=== PATIENT | female | born 1985 | race Caucasian/White ===

== ENCOUNTER 2017-09-09 08:46 | Inpatient (IN) | payer BC, OTHER ==
[2017-09-09] VITALS (14 sets, daily range): BP systolic 114–132; BP diastolic 58–82
[~2017-09-09] VITALS: Ht 165.1 cm; Wt 92.0 kg
[~2017-09-09 08:46] MED LIST: Children's Advil Sus PO; MOTRIN800 MG PO; PERCOCET 5/31 TABLET PO; PREFERA-OB P1 TABLET PO; PRILOSEC20 MG PO; Percocet 5/325,Endoc PO; ZYRTEC5 MG PO
[2017-09-09] MEDS ORDERED: BENADRYL ALLERG25 MG PO (09:46)
[2017-09-09 10:13] LABS: EOSINOPHIL (%) 0.9 % (0-5); EOSINOPHIL COUNT 0.1 K/uL (0-0.3); HEMATOCRIT 39.4 % (36.0-46.0); IMMATURE GRANULOCYTE (%) 0.5 % (0.0-0.7); INSTRUMENT ABS NEUTROPHIL CT 6.2 K/uL; LYMPHOCYTE COUNT 1.7 K/uL (1.0-2.8); MCH 27.5 PG (29.0-34.0); MCV 83.5 FL (83-99); MEAN PLAT.VOLUME 10.4 uM^3 (9.5-12.4); MONOCYTE (%) 5.6 % (3-12); MONOCYTE COUNT 0.5 K/uL (0-0.8); NEUTROPHIL (%) 72.5 % (45-76); NEUTROPHIL COUNT 6.2 K/uL (1.8-6.4); PLATELET COUNT 199 K/uL (156-360); RBC DIS.WIDTH-CV 12.4 % (11.8-14.6); RED BLOOD COUNT 4.72 M/uL (3.80-5.20); WHITE BLOOD COUNT 8.5 K/uL (4.1-10.2)
[2017-09-09 12:59] LABS: POINT-OF-CARE METER ID UU13113692
[2017-09-09] MEDS ORDERED: IBUPROFEN800 MG PO (14:38)
[2017-09-10 07:36] VITALS: BP 117/65
[2017-09-10] MEDS ORDERED: BREAST PUMP MC (08:38)
[2017-09-10 14:47] VITALS: BP 115/68
== END 2017-09-10 18:10 | disposition home or self-care (01) | DRG 775 ==
LOC: LDRP-OP 08:46 → 2WEST 08:48 → LDRP-OP 11:21 → 2WEST 14:18 → LDRP-OP 10-17 11:54
PROVIDERS: Nurse Practitioner; Obstetrics & Gynecology Gynecology
DX: O24.420 Gestational diabetes mellitus in childbirth, diet controlled (principal); O36.0930 Maternal care for other rhesus isoimmunization, third trimester, not applicable or unspecified; O99.62 Diseases of the digestive system complicating childbirth; K21.9 Gastro-esophageal reflux disease without esophagitis; Z3A.39 39 weeks gestation of pregnancy; Z37.0 Single live birth; M41.9 Scoliosis, unspecified; O75.89 Other specified complications of labor and delivery; O69.81X0 Labor and delivery complicated by cord around neck, without compression, not applicable or unspecified; O99.214 Obesity complicating childbirth; E66.01 Morbid (severe) obesity due to excess calories; O99.02 Anemia complicating childbirth; D50.9 Iron deficiency anemia, unspecified
CPT/HCPCS: 82948; 85025; J2590

== ENCOUNTER → 2018-04-18 | Outpatient (CLI) | payer BC ==
[~2018-04-18] MED LIST changes: +BENADRYL ALLERG25 MG PO; +BREAST PUMP MC; +IBUPROFEN800 MG PO
== END | disposition home or self-care (01) ==
LOC: NUC 08:44
DX: R10.11 Right upper quadrant pain (principal); K21.9 Gastro-esophageal reflux disease without esophagitis; R11.0 Nausea
CPT/HCPCS: 78226; A9537

== ENCOUNTER → 2018-05-12 | Outpatient (CLI) | payer BC | END | disposition home or self-care (01) | LOC: NUC 08:21 | DX: K31.84 Gastroparesis (principal); K21.9 Gastro-esophageal reflux disease without esophagitis; R11.0 Nausea | CPT/HCPCS: 78264; A9541 ==